=== PATIENT | male | born 1995 | race Caucasian/White ===

== ENCOUNTER 2017-05-07 16:03 | Emergency (ER) | payer OTHER ==
[2017-05-07 16:40] VITALS: BP 111/56
--- NOTE | 2017-05-07 17:38 | UC ---
FLU HPI - HPI Summary HPI Summary: This is an otherwise healthy 22 yo male who presents with 4d h/o ST, fever/ chills, hoarseness, body aches, QUINONEZ, and fatigue. He has a dry cough. No SOB or CP. Some nausea and loose stools. No vomiting. No rash - History of Current Complaint Chief Complaint: UCRespiratory Stated Complaint: SORE THROAT Pain Intensity: 6 - Allergy/Home Medications Allergies/Adverse Reactions: Allergies Allergy/AdvReac Type Severity Reaction Status Date / Time cefdinir [From Omnicef] Allergy Itching Verified 05/07/17 16:40 Home Medications: Home Medications Acetaminophen/Dextromethorphan [Daytime Cold & Cough Liquid] 1 liq PO 05/07/17 [ History] PMH/Surg Hx/FS Hx/Imm Hx Previously Healthy: Yes - Surgical History Surgical History: None - Family History Known Family History: Positive: None - Social History Alcohol Use: Occasionally Substance Use Type: Marijuana Substance Use Comment - Amount & Last Used: once every 6 months Smoking Status (MU): Never Smoked Tobacco Review of Systems Constitutional: Fever, Chills, Fatigue Skin: Negative Eyes: Negative ENT: Sore Throat, Nasal Discharge, Sinus Congestion Respiratory: Cough Cardiovascular: Negative Gastrointestinal: Nausea Genitourinary: Negative Motor: Negative Neurovascular: Negative Musculoskeletal: Negative Neurological: Negative Psychological: Negative Is Patient Immunocompromised?: No All Other Systems Reviewed And Are Negative: Yes Physical Exam Triage Information Reviewed: Yes Appearance: Ill-Appearing - mildly Vital Signs: Initial Vital Signs Temp 98.7 F 05/07/17 16:35 Pulse 95 05/07/17 16:35 Resp 18 05/07/17 16:35 BP 111/56 05/07/17 16:35 Pulse Ox 98 05/07/17 16:35 Vital Signs Reviewed: Yes ENT: Positive: Pharyngeal erythema, TM dull Neck: Positive: Supple, No Lymphadenopathy Respiratory: Positive: Lungs clear, Normal breath sounds. Negative: Crackles, Rhonchi, Wheezing Cardiovascular: Positive: RRR, No Murmur Abdomen Description: Positive: Nontender, Soft Musculoskeletal Exam: Normal Neurological Exam: Normal Neurological: Positive: Alert Psychological Exam: Normal Skin Exam: Normal Skin: Negative: rashes Diagnostics - Laboratory Diagnostic Studies Completed/Ordered: Rapid strep - neg. Rapid flu - neg Flu Course/Dx - Course Course Of Treatment: This is an otherwise healthy 22 yo male who presents with influenza like symptoms. Rapid influenza and strep testing neg. Recommend symptomatic treatment - Differential Dx/Diagnosis Differential Diagnosis/HQI/PQRI: Influenza, Pneumonia, RSV, Upper Respiratory Infection Provider Diagnoses: 1. Acute viral URI Discharge - Discharge Plan Condition: Stable Disposition: HOME Patient Education Materials: Upper Respiratory Infection (ED) Forms: *Work Release Referrals: Levi Espinoza MD [Primary Care Provider] - If Needed Additional Instructions: Instructions: 1. Use sudafed and ibuprofen to help with symptoms
== END 2017-05-07 18:15 | disposition home or self-care (01) ==
LOC: UCEAST 16:03
DX: J06.9 Acute upper respiratory infection, unspecified (principal); Z88.1 Allergy status to other antibiotic agents
CPT/HCPCS: 87502; 87651; 99211; G0463

== ENCOUNTER 2018-11-25 16:25 | Emergency (ER) | payer BC, OTHER ==
[2018-11-25 16:33] VITALS: BP 116/75
--- NOTE | 2018-11-25 17:13 | UC ---
Respiratory Complaint HPI - HPI Summary HPI Summary: uri, body aches, subjective fever for 5 days--no known illness exposures-- no rash,nausea, vomiting or diarrhea - History of Current Complaint Chief Complaint: UCRespiratory Stated Complaint: fever, ACHES, AND CONGESTION Time Seen by Provider: 11/25/18 17:06 Hx Obtained From: Patient Onset/Duration: Sudden Onset, Lasting Days - 4-5, Still Present Timing: Constant Pain Intensity: 6 Pain Scale Used: 0-10 Numeric Character: Cough: Nonproductive Aggravating Factors: Nothing Alleviating Factors: OTC Meds Associated Signs And Symptoms: Positive: Fever, Chills, URI, Nasal Congestion, Hoarseness - Allergies/Home Medications Allergies/Adverse Reactions: Allergies Allergy/AdvReac Type Severity Reaction Status Date / Time cefdinir [From Omnicef] Allergy Itching Verified 11/25/18 16:33 Home Medications: Home Medications Dm/PE/Acetaminophen/Doxylamine [Vicks Dayquil-Nyquil Cold-Flu] 1 tab PO Q6HR PRN 11/25/18 [History Confirmed 11/25/18] Melatonin 1 tab PO QPM PRN 11/25/18 [History Confirmed 11/25/18] PMH/Surg Hx/FS Hx/Imm Hx Previously Healthy: Yes - Surgical History Surgical History: None - Family History Known Family History: Positive: None - Social History Occupation: Employed Part-time, Student Lives: With Family Alcohol Use: Occasionally Substance Use Type: Marijuana Substance Use Comment - Amount & Last Used: once every 6 months Smoking Status (MU): Never Smoked Tobacco Review of Systems All Other Systems Reviewed And Are Negative: Yes Constitutional: Positive: Fever, Chills, Fatigue Skin: Positive: Negative Eyes: Positive: Negative ENT: Positive: Sore Throat, Nasal Discharge, Sinus Congestion, Sinus Pain/ Tenderness Respiratory: Positive: Cough Cardiovascular: Positive: Negative Gastrointestinal: Positive: Negative Genitourinary: Positive: Negative Motor: Positive: Negative Neurovascular: Positive: Negative Musculoskeletal: Positive: Arthralgia, Myalgia Neurological: Positive: Negative Psychological: Positive: Negative Is Patient Immunocompromised?: No Physical Exam Triage Information Reviewed: Yes Appearance: Well-Nourished, Ill-Appearing - mild, Pain Distress - mild Vital Signs: Initial Vital Signs Temp 97.3 F 11/25/18 16:30 Pulse 70 11/25/18 16:30 Resp 18 11/25/18 16:30 BP 116/75 11/25/18 16:30 Pulse Ox 99 11/25/18 16:30 Vital Signs Reviewed: Yes Eye Exam: Normal Eyes: Positive: Conjunctiva Clear ENT Exam: Normal ENT: Positive: Normal ENT inspection, Hearing grossly normal, Pharynx normal, Nasal congestion, TMs normal, Uvula midline. Negative: Tonsillar swelling, Tonsillar exudate, Trismus, Muffled voice, Hoarse voice, Dental tenderness, Sinus tenderness Dental Exam: Normal Neck exam: Normal Neck: Positive: Supple, Nontender, No Lymphadenopathy Respiratory Exam: Normal Respiratory: Positive: Chest non-tender, Lungs clear, Normal breath sounds, No respiratory distress, No accessory muscle use Cardiovascular Exam: Normal Cardiovascular: Positive: RRR, No Murmur, Pulses Normal, Brisk Capillary Refill Musculoskeletal Exam: Normal Musculoskeletal: Positive: Strength Intact, ROM Intact, No Edema Neurological Exam: Normal Neurological: Positive: Alert, Muscle Tone Normal Psychological Exam: Normal Skin Exam: Normal Respiratory Course/Dx - Course Course Of Treatment: patient refused strep and flu test--will d/c to home with dx of viral illness, URI--treat with otc medications of symptom relief and fever - Differential Dx/Diagnosis Provider Diagnosis: Viral upper respiratory illness Discharge ED - Sign-Out/Discharge Documenting (check all that apply): Patient Departure All imaging exams completed and their final reports reviewed: No Studies - Discharge Plan Condition: Stable Disposition: HOME Patient Education Materials: Upper Respiratory Infection (ED), Viral Syndrome ( ED) Referrals: Levi Espinoza MD [Primary Care Provider] - If Needed - Billing Disposition and Condition Condition: STABLE Disposition: Home
== END 2018-11-25 17:29 | disposition home or self-care (01) ==
LOC: UCEAST 16:25
DX: J06.9 Acute upper respiratory infection, unspecified (principal); Z88.1 Allergy status to other antibiotic agents
CPT/HCPCS: 99211; G0463